=== PATIENT | female | born 1965 | race Caucasian/White ===

== ENCOUNTER 2020-11-03 09:45 | Outpatient (RCR) | payer OTHER, MEDICAID, SELFPAY ==
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
--- NOTE | 2020-10-30 09:55 | PT-OP ANOTE ---
PT called pt who reports that she is feeling poorly with low-grade fever today. She would like to con't PT 1x/wk and PT asks her to call back and cancel one appointment a week with front office.
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
== END 2020-12-11 14:16 ==
LOC: PHYS 09:45
PROVIDERS: Family Provider Specialist; PCP Specialist; Referring Provider Physical Medicine & Rehabilitation Pain Medicine; Visit Provider Physical Medicine & Rehabilitation Pain Medicine
DX: M48.02 Spinal stenosis, cervical region (principal); M79.18 Myalgia, other site; M54.81 Occipital neuralgia
CPT/HCPCS: 97110; 97161

== ENCOUNTER → 2022-11-01 13:10 | Outpatient (CLI) | payer OTHER, MEDICAID, SELFPAY ==
--- NOTE | 2022-11-01 | DI.MRI.S_ITS ---
PROCEDURE: MR LUMBAR SPINE WO CON INDICATIONS: Radiculopathy, lumbosacral region TECHNIQUE: Noncontrast sagittal T1 spin echo and T2 fast echo, sagittal STIR, and T2 fast spin echo through the lumbar spine. In cases with scoliosis, additional coronal T2 fast spin echo may be performed. COMPARISON: None. FINDINGS: Image quality: Excellent. Alignment and Curvature: There is trace retrolisthesis of L3 on L4. Bone Marrow: Marrow is of normal overall signal. No acute vertebral body compression fractures. Spinal Cord: Conus medullaris terminates at the L1 level. Visualized cord demonstrates normal signal and size. Paraspinous Soft Tissues: No paravertebral masses. Discs: Minimal to mild desiccation is present throughout the lumbar spine. T12-L1: No disc bulge, spinal stenosis or foraminal narrowing. L1-L2: Minimal disc bulge without spinal stenosis or foraminal narrowing. Mild facet and ligamentum flavum hypertrophy. L2-L3: Minimal disc bulge without spinal stenosis or foraminal narrowing. Mild facet and ligamentum flavum hypertrophy. L3-L4: Mild disc bulge without spinal stenosis. Minimal left foraminal narrowing with facet and ligamentum flavum hypertrophy. L4-L5: Mild disc bulge with mild spinal stenosis. No foraminal narrowing. Facet and ligamentum flavum hypertrophy are present. L5-S1: Mild disc bulge including a right lateral component. Minimal right foraminal narrowing with facet and ligamentum flavum hypertrophy. IMPRESSION: Multilevel disc bulges. Mild spinal stenosis L4-5 secondary to disc bulge with contributing effect of facet/ligamentum flavum arthropathy. Minimal foraminal narrowing secondary to facet arthropathy. Dictated by: Esthela Esqueda M.D. on 11/01/2022 at 15:17 Approved by: Esthela Esqueda M.D. on 11/01/2022 at 15:22
== END ==
PROVIDERS: Family Provider Specialist; PCP Specialist; Referring Provider Physical Medicine & Rehabilitation Pain Medicine; Visit Provider Physical Medicine & Rehabilitation Pain Medicine
DX: M51.16 Intervertebral disc disorders with radiculopathy, lumbar region (principal); M51.17 Intervertebral disc disorders with radiculopathy, lumbosacral region; M47.26 Other spondylosis with radiculopathy, lumbar region; M48.061 Spinal stenosis, lumbar region without neurogenic claudication
CPT/HCPCS: 72148